=== PATIENT | male | born 1995 | race African-American/Black ===

== ENCOUNTER 2024-01-03 05:34 | Emergency (ER) | payer OTHER ==
[~2024-01-03] VITALS: Ht 170.2 cm; Wt 100.0 kg
[~2024-01-03 05:34] MED LIST: PROTONIX 40MG T40 MG PO; ZOFRAN ODT4 MG PO
[2024-01-03 06:10] LABS: BASO % 0.2 % (0.0-2.0); EOS # 0.1 K/mm3 (0.0-0.7); EOS % 0.5 % (0.0-4.0); GRAN # 9.8 K/mm3 (1.4-6.5); GRAN % 81.1 % (42.2-75.2); HEMATOCRIT 46.9 % (42.0-52.0); HEMOGLOBIN 16.8 g/dl (13.5-18.0); MEAN CELL VOLUME 91 fl (80.0-100.0); MEAN CORPUSCULAR HEMOGLOBIN 33 pg (27-31); MEAN CORPUSCULAR HGB CONC 36 g/dl (33.0-37.0); MEAN PLATELET VOLUME 9.4 fl (7.4-10.4); MONO # 0.2 K/mm3 (0.1-0.6); PLATELET COUNT 266 K/mm3 (130-400); RED BLOOD COUNT 5.13 M/mm3 (4.20-5.60); REDCELL DISTRIBUTION WIDTH-CV 11.7 % (11.5-14.5)
[2024-01-03] MEDS ORDERED: NS 1,000 ML IV ONE (06:15)
[2024-01-03 06:24] LABS: ALANINE AMINOTRANSFERASE 21 U/L (0-55); ALBUMIN 3.9 g/dL (3.5-5.0); ALKALINE PHOSPHATASE 149 U/L (40-150); ANION GAP 10 mmol/L (7-16); AST,SGOT 22 U/L (5-34); BILIRUBIN,TOTAL 0.4 mg/dL (0.2-1.2); BLOOD UREA NITROGEN 10 mg/dL (9-21); C-REACTIVE PROTEIN 0.07 mg/dL (0.00-0.50); CALCIUM 9.6 mg/dL (8.4-10.2); CHLORIDE 107 mEq/L (98-107); CREATININE, serum 1.11 mg/dL (0.72-1.25); GLUCOSE 105 mg/dL (70-99); POTASSIUM 3.5 mEq/L (3.5-4.5); SODIUM 141 mEq/L (136-145); TOTAL PROTEIN 7.2 g/dl (6.2-8.1)
[2024-01-03] MEDS ORDERED: Ondansetron 4 MG/2 ML VIAL IV ONE (06:30)
[2024-01-03 06:31] LABS: TROPONIN-I < 0.010 ng/mL (0.00-0.033)
[2024-01-03] MEDS ORDERED: ZITHROMAX Z PA250 MG PO (07:10)
[2024-01-03] MEDS ORDERED: ZOFRAN ODT4 MG PO (07:10)
[2024-01-03] MEDS ORDERED: PREDNISONE20 MG PO (07:10)
[2024-01-03 07:41] VITALS: BP 121/86; PULSE 96; TEMP 98
== END 2024-01-03 07:38 | disposition home or self-care (01) ==
LOC: COL.ER 05:34
PROVIDERS: Emergency Medicine
DX: J40 Bronchitis, not specified as acute or chronic (principal); R11.0 Nausea; Z88.0 Allergy status to penicillin; Z88.1 Allergy status to other antibiotic agents
CPT/HCPCS: J2405; J7030

== ENCOUNTER 2024-06-15 07:10 | Emergency (ER) | payer OTHER ==
[~2024-06-15] VITALS: Ht 170.2 cm; Wt 100.0 kg
[~2024-06-15 07:10] MED LIST changes: +PREDNISONE20 MG PO; +ZITHROMAX Z PA250 MG PO
[2024-06-15 07:37] VITALS: TEMP 100.4
[2024-06-15] MEDS ORDERED: NS 1,000 ML IV ONE (08:15)
[2024-06-15 08:23] LABS: HEMATOCRIT 44.4 % (42.0-52.0); HEMOGLOBIN 15.5 g/dl (13.5-18.0); MEAN CELL VOLUME 92 fl (80.0-100.0); MEAN CORPUSCULAR HEMOGLOBIN 32 pg (27-31); MEAN CORPUSCULAR HGB CONC 35 g/dl (33.0-37.0); MEAN PLATELET VOLUME 9.2 fl (7.4-10.4); PLATELET COUNT 293 K/mm3 (130-400); RED BLOOD COUNT 4.82 M/mm3 (4.20-5.60); REDCELL DISTRIBUTION WIDTH-CV 11.9 % (11.5-14.5)
[2024-06-15 08:52] LABS: BAND 19 % (0-10); LYMPHOCYTE 4 % (20.0-51.0); PLATELET ESTIMATE NORMAL (NORMAL)
[2024-06-15 08:54] LABS: STOMATOCYTE 1+
[2024-06-15 08:58] LABS: NEUTROPHILS 74 % (42.0-75.2)
[2024-06-15 09:35] LABS: ALBUMIN 3.8 g/dL (3.5-5.0); BILIRUBIN,TOTAL 0.8 mg/dL (0.2-1.2); CALCIUM 9.3 mg/dL (8.4-10.2); CREATININE, serum 1.08 mg/dL (0.72-1.25); POTASSIUM 4.3 mEq/L (3.5-4.5); TOTAL PROTEIN 6.8 g/dl (6.2-8.1)
[2024-06-15 09:42] LABS: TROPONIN-I 0.011 ng/mL (0.00-0.033)
[2024-06-15] MEDS ORDERED: NS 100 ML IV SCH (10:05)
[2024-06-15] MEDS ORDERED: Iohexol 300 - 100 ML VIAL IV ONE (10:06)
[2024-06-15 11:56] LABS: PH 8.5 (5.0-8.5); URINE APPEARANCE CLEAR (CLEAR/HAZY); URINE BLOOD NEGATIVE (NEGATIVE); URINE COLOR YELLOW (YELLOW); URINE GLUCOSE NEGATIVE (NEGATIVE); URINE KETONE NEGATIVE (NEGATIVE); URINE NITRATE NEGATIVE (NEGATIVE); URINE PROTEIN(semi-quant) NEGATIVE (NEGATIVE); URINE UROBILINOGEN 0.2 E.U/dL (0.2-1.0)
[2024-06-15] MEDS ORDERED: CIPRO 500MG TA500 MG PO (12:05)
[2024-06-15] MEDS ORDERED: PHENERGAN 25 TA25 MG PO (12:05)
[2024-06-15 12:24] LABS: COLLECTION METHOD CLEAN CATCH
[2024-06-15 12:51] VITALS: BP 113/75; PULSE 87
== END 2024-06-15 12:51 | disposition home or self-care (01) ==
LOC: COL.ER 07:10
PROVIDERS: Family Medicine
DX: J40 Bronchitis, not specified as acute or chronic (principal); J32.0 Chronic maxillary sinusitis
CPT/HCPCS: J1956; J7030; Q9967